=== PATIENT | male | born 1990 | race Two or more races ===

== ENCOUNTER 2018-11-28 16:06 | Emergency (ER) | payer OTHER ==
[2018-11-28 19:08] LABS: Rapid Strep Molecular Negative (Negative)
[2018-11-28] MEDS ORDERED: Benzonatate CAP* 100 MG PO ONE (19:29)
[2018-11-28] MEDS ORDERED: Lidocaine 2% VISCOUS* 15 ML UDC PO ONE (19:29)
[2018-11-28] MEDS ORDERED: Azithromycin TAB* 250 MG PO ONE (19:30)
--- NOTE | 2018-11-28 19:33 | ED ---
Throat Pain/Nasal Congestion - HPI Summary HPI Summary: Patient complains of productive cough 2 days with sore throat. Denies any other symptoms, injury or pain. - History of Current Complaint Chief Complaint: EDThroatPain Time Seen by Provider: 11/28/18 18:52 Hx Obtained From: Patient Onset/Duration: Gradual Onset, Lasting Days Severity: Moderate Associated Signs And Symptoms: Negative: Nasal Discharge Cough: Productive - Allergies/Home Medications Allergies/Adverse Reactions: Allergies Allergy/AdvReac Type Severity Reaction Status Date / Time No Known Allergies Allergy Verified 11/28/18 19:07 PMH/Surg Hx/FS Hx/Imm Hx Endocrine/Hematology History: Denies: Hx Anticoagulant Therapy Cardiovascular History: Denies: Hx Pacemaker/ICD History: Denies: Hx Dialysis Sensory History: Denies: Hx Eye Prosthesis Opthamlomology History: Denies: Hx Legally Blind EENT History: Denies: Hx Deafness Neurological History: Denies: Hx Dementia Infectious Disease History: No Infectious Disease History: Denies: Traveled Outside the [place] in Last 30 Days - Family History Known Family History: Positive: Non-Contributory - Social History Alcohol Use: None Substance Use Type: Reports: None Smoking Status (MU): Never Smoked Tobacco Review of Systems Constitutional: Negative Eyes: Negative Positive: Sore Throat Cardiovascular: Negative Positive: Cough Gastrointestinal: Negative Genitourinary: Negative Musculoskeletal: Negative Skin: Negative Neurological: Negative Psychological: Normal All Other Systems Reviewed And Are Negative: Yes Physical Exam - Summary Physical Exam Summary: Lung sounds clear to auscultation bilaterally. ENT exam unremarkable. Triage Information Reviewed: Yes Vital Signs On Initial Exam: Initial Vitals Temp Pulse Resp BP Pulse Ox 98.0 F 92 15 128/79 98 11/28/18 16:16 11/28/18 16:16 11/28/18 16:16 11/28/18 16:16 11/28/18 16:16 Vital Signs Reviewed: Yes Appearance: Positive: Well-Appearing Skin: Positive: Warm Head/Face: Positive: Normal Head/Face Inspection Eyes: Positive: Normal ENT: Positive: Normal ENT inspection Neck: Positive: Supple Respiratory/Lung Sounds: Positive: Clear to Auscultation Cardiovascular: Positive: Normal Abdomen Description: Positive: Nontender Musculoskeletal: Positive: Normal Neurological: Positive: Normal Psychiatric: Positive: Normal AVPU Assessment: Alert - [place] Coma Scale Best Eye Response: 4 - Spontaneous Best Motor Response: 6 - Obeys Commands Best Verbal Response: 5 - Oriented Coma Scale Total: 15 Diagnostics - Vital Signs Vital Signs Temp Pulse Resp BP Pulse Ox 11/28/18 18:20 97.7 F 70 16 122/84 100 11/28/18 16:16 98.0 F 92 15 128/79 98 - Laboratory Lab Results: Lab Results 11/28/18 Range/Units 17:50 Group A Strep Rapid Negative (Negative) Lab Statement: Any lab studies that have been ordered have been reviewed, and results considered in the medical decision making process. EENT Course/Dx - Course Course Of Treatment: Patient complains of productive cough 2 days with sore throat. Denies any other symptoms, injury or pain. Vital signs within normal limits. Chest x-ray negative. Strep negative. Rx for azithromycin, Tessalon and viscous lidocaine. - Diagnoses Provider Diagnoses: Respiratory infection, Cough, Pharyngitis Discharge - Sign-Out/Discharge Documenting (check all that apply): Patient Departure Patient Received Moderate/Deep Sedation with Procedure: No - Discharge Plan Condition: Stable Disposition: HOME Prescriptions: Azithromycin 250 mg PO DAILY 4 Days #4 tablet Benzonatate CAP* [Tessalon 100 MG CAP*] 200 mg PO TID 6 Days #40 cap Lidocaine 2% VISCOUS* [Xylocaine 2% Viscous*] 15 ml SWISH SPIT Q6H PRN #1 btl PRN Reason: Pain Patient Education Materials: Pharyngitis (ED), Upper Respiratory Infection (ED) Referrals: No Primary Care Phys,NOPCP [Primary Care Provider] - Additional Instructions: Take Tessalon as directed for cough. Take azithromycin for respiratory infection as directed. Used lidocaine for sore throat pain as directed. Follow -up with primary care. Return to the ED for any new or worsening symptoms. - Billing Disposition and Condition Condition: STABLE Disposition: Home
[2018-11-28 20:04] VITALS: BP 121/82
== END 2018-11-28 20:03 | disposition home or self-care (01) ==
LOC: ED 16:06
DX: J98.8 Other specified respiratory disorders (principal); R05 Cough; J02.9 Acute pharyngitis, unspecified
CPT/HCPCS: 71046; 87651; 99282; A9270-GY